=== PATIENT | male | born 1995 | race African-American/Black ===

== ENCOUNTER 2019-01-10 13:16 | Emergency (ER) | payer SELFPAY ==
[~2019-01-10] VITALS: Ht 177.8 cm; Wt 84.8 kg
[2019-01-10] MEDS ORDERED: LIDOCAINE 2% 20 ML VIAL. ONE (13:35)
[2019-01-10 14:30] VITALS: BP 130/70
--- NOTE | 2019-01-10 14:33 | RAD ---
RIGHT HAND, VIEWS 3 Indication: Trauma, laceration to thumb. Findings: There is no acute fracture or dislocation. Bony articulations are normal. There is no bony erosion. Mineralization is normal. There is no radiographically apparent soft tissue swelling or radiopaque foreign body. There is laceration near the tip of the thumb. IMPRESSION: No acute fracture. No radiopaque foreign body. Electronically signed by: Maximo Vargas MD (01/10/2019 2:30 PM) [id number]
[2019-01-10] MEDS ORDERED: AMOX1TAB61 PO (14:55)
[2019-01-10] MEDS ORDERED: HYDR-3164 PO (14:55)
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
[2019-01-10] MEDS ORDERED: HYDROcodone/APAP 5/325MG 1 TAB TABLET PO ONE (15:00)
== END 2019-01-10 15:45 | disposition home or self-care (01) ==
LOC: ER 13:16
DX: S61.011A Laceration without foreign body of right thumb without damage to nail, initial encounter (principal); W26.8XXA Contact with other sharp object(s), not elsewhere classified, initial encounter; Y93.89 Activity, other specified; Y92.89 Other specified places as the place of occurrence of the external cause; Y99.8 Other external cause status
CPT/HCPCS: 12002; 73130; 99284

== ENCOUNTER 2019-01-12 21:47 | Emergency (ER) | payer SELFPAY ==
[~2019-01-12] VITALS: Ht 172.7 cm; Wt 68.0 kg
[~2019-01-12 21:47] MED LIST: AMOX1TAB61 PO; HYDR-3164 PO
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
[2019-01-12 22:33] LABS: BILIRUBIN,URINE NEGATIVE (NEG); CLARITY,URINE CLEAR; COLOR,URINE YELLOW; NITRITE,URINE NEGATIVE (NEG); PH,URINE 5.5; PROTEIN,URINE NEGATIVE (NEG-TRACE)
[2019-01-12 22:38] LABS: BACTERIA,URINE 0 /HPF (0-FEW); RBC,URINE 0 /HPF (0-2); SQUAMOUS EPITHELIAL CELL,UR OCC /LPF; WBC,URINE OCC /HPF (0-4)
[2019-01-12 22:46] LABS: BASO # 0.1 x10^3/uL (0.0-0.2); BASO % 1 % (0-3); EOS % 1 % (0-3); HEMATOCRIT 45.2 % (39.0-53.0); HEMOGLOBIN 15.7 g/dL (13.0-17.5); LYMPH # 1.1 x10^3/uL (1.0-4.8); LYMPH % 11 % (24-48); MEAN CORPUSCULAR HEMOGLOBIN 32 pg (25-35); MEAN CORPUSCULAR HGB CONC 35 g/dL (31-37); MEAN CORPUSCULAR VOLUME 92 fL (79-100); MONO # 1.4 x10^3/uL (0.0-1.1); MONO % 14 % (0-9); NEUT # 7.9 x10^3/uL (1.8-7.7); NEUT % 75 % (31-73); PLATELET COUNT 193 x10^3/uL (140-400); RED BLOOD COUNT 4.93 x10^6/uL (4.30-5.70); RED CELL DISTRIBUTION WIDTH 13.3 % (11.5-14.5); WHITE BLOOD COUNT 10.7 x10^3/uL (4.0-11.0)
[2019-01-12 22:54] LABS: GFR 114.1; POTASSIUM 3.7 mmol/L (3.5-5.1)
[2019-01-12 23:00] LABS: ALBUMIN 4.1 g/dL (3.4-5.0); ALBUMIN/GLOBULIN RATIO 1.2 (1.0-1.7); TOTAL PROTEIN 7.5 g/dL (6.4-8.2)
[2019-01-12] MEDS ORDERED: IV NORMAL SALINE 1000ML BAG 1,000 ML IV ONE (23:00)
[2019-01-12] MEDS ORDERED: METOCLOPRAMIDE HCL 10 MG/2 ML VIAL. IV ONE (23:00)
[2019-01-12] MEDS ORDERED: CONTRAST GIVEN. MC PRN (23:15)
[2019-01-12] MEDS ORDERED: IOHEXOL 300 MG/ML 100ML VIAL. IV ONE (23:30)
--- NOTE | 2019-01-12 23:39 | RAD ---
CT SCAN OF THE ABDOMEN AND PELVIS WITH IV CONTRAST. History: Abdominal pain Comparison:None. Procedure: Contiguous axial images of the abdomen and pelvis were performed after the administration of 75 cc of Isovue 370 IV contrast and without oral contrast. CT Abdomen with contrast: Findings: Liver: Minimal periportal edema Spleen: Unremarkable Pancreas: Unremarkable Adrenal Glands: Unremarkable Kidneys: Unremarkable There is no mass or lymphadenopathy. There is no free air. There is no free fluid. CT Pelvis with Contrast: Findings: The urinary bladder is collapsed and not well evaluated. There is no free fluid. There is no lymphadenopathy. The appendix is normal. Impression: Minimal periportal edema in the liver is nonspecific and can be secondary to IV hydration or hepatitis. End impression PQRS Compliance Statement: One or more of the following individualized dose reduction techniques were utilized for this examination: 1. Automated exposure control 2. Adjustment of the mA and/or kV according to patient size 3. Use of iterative reconstruction technique Electronically signed by: Kt Munson III, MD (01/12/2019 11:36 PM) [facility]
[2019-01-12 23:54] VITALS: BP 126/60
== END 2019-01-13 00:11 | disposition home or self-care (01) ==
LOC: ER 21:47
DX: K52.9 Noninfective gastroenteritis and colitis, unspecified (principal); R79.89 Other specified abnormal findings of blood chemistry
CPT/HCPCS: 36415; 74177; 80053; 81001; 83690; 85025; 96361; 96374; 99285; J2765; J7030; Q9967

== ENCOUNTER 2019-01-20 11:45 | Emergency (ER) | payer SELFPAY ==
[~2019-01-20] VITALS: Ht 170.2 cm; Wt 68.0 kg
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
== END 2019-01-20 14:09 | disposition home or self-care (01) ==
LOC: ER 11:45
DX: S61.012D Laceration without foreign body of left thumb without damage to nail, subsequent encounter (principal); X58.XXXD Exposure to other specified factors, subsequent encounter
CPT/HCPCS: 99281